=== PATIENT | female | born 1960 ===

== ENCOUNTER 2023-12-21 19:57 | Emergency (ER) | payer OTHER ==
[~2023-12-21] VITALS: Ht 170.2 cm; Wt 57.1 kg
[2023-12-21] MEDS ORDERED: Veetids 500500 MG PO (21:09)
[2023-12-21] MEDS ORDERED: Penicillin V Potassium 250 MG Tab PO ONE (21:10)
== END 2023-12-21 21:20 | disposition home or self-care (01) ==
LOC: ER 19:57
DX: K04.7 Periapical abscess without sinus (principal)
CPT/HCPCS: 99282; A9270